=== PATIENT | male | born 1965 | race Caucasian/White ===

== ENCOUNTER 2023-11-01 18:51 | Emergency (ER) | payer BC, SELFPAY ==
[2023-11-01 18:59] VITALS: BP 114/78
--- NOTE | 2023-11-01 20:55 | ED.GENMED ---
History of Present Illness
General
Chief Complaint: Back Pain
Source: patient
Time Seen by Provider: 11/01/23 20:11
History of Present Illness
History of Present Illness:
58-year-old male presenting to the emergency department for evaluation of left-sided lower back pain that has been present for the last 5 days, gradually worsening in intensity and now radiating down into the left thigh. Patient also notes he
started to feel little bit of pain into the right lower part of his back. Patient came to the ER this evening in search for pain relief as he notes Motrin and Tylenol is not helping as well as hoping to obtain an MRI for further evaluation patient
denies any fevers or infectious symptoms, bowel or urinary incontinence, saddle anesthesias or any other focal weakness or numbness, traumatic injuries, long-term corticosteroid use. Patient does note that 12 years ago he had L3 and L4 fracture
from a traumatic injury but does not note any chronic complications from this.
Past History
Past History
ED Past Medical History: None
ED Past Surgical History: None
Social History
Tobacco: Non-smoker
Alcohol: Occasional
Drug: None
Personal:
Living: with family
Review of Systems
Review of Systems
All Other Systems: ROS reviewed and negative except as documented in HPI and ROS
Phy Exam
Physical Exam
Physical Exam:
GENERAL: Alert , in no apparent distress but does appear uncomfortable with movement and moves very gingerly
EYE: clear conjunctiva b/l
NECK: Supple
ENT: o/p clr, mmm.
CARDIAC: Regular rate and rhythm .
LUNGS: Clear breath sounds bilaterally, no acute respiratory distress, no wheezes/rales/rhonchi
ABDOMEN: Soft, without focal tenderness, no r/g, no cvat
BACK: Limited range of motion especially with forward flexion, left paralumbar tenderness, no midline bony tenderness, no rashes
NEUROLOGICAL: Alert and oriented, no focal neuro deficits. Patellar deep tendon reflexes intact and equal bilaterally, sensation grossly intact and equal to light touch bilateral lower extremities
SKIN: Warm and dry, skin intact.
MUSCULOSKELETAL: No edema, well perfused. EHL intact bilaterally
PSYCH: Normal and appropriate interaction.
Scores
Heart Failure Risk
Heart Failure Risk Score: Not Applicable
Heart Score for Chest Pain Patients
STEMI patient?: Not applicable
Withdrawal Assessment of Alcohol
Withdrawal Assessment Completed?: Not applicable
Course
Orders/Labs/Results
Orders:
Orders
11/01/23 20:55
Dexamethasone Sod Phosphate [Decadron] 10 mg IM NOW STA
Tramadol HCl [Ultram] 50 mg PO NOW STA
Vital Signs
Initial and Last Documented VS:
Initial Vital Signs
Temp Pulse Resp BP Pulse Ox
98.1 F 104 22 114/78 98
11/01/23 18:59 11/01/23 18:59 11/01/23 18:59 11/01/23 18:59 11/01/23 18:59
Last Documented Vital Signs
Temp Pulse Resp BP Pulse Ox
98.1 F 104 22 114/78 98
11/01/23 18:59 11/01/23 18:59 11/01/23 18:59 11/01/23 18:59 11/01/23 18:59
MDM/Problems Addressed
Differential Diagnosis Includes:
Lumbar strain, disc herniation, nerve impingement, spinal stenosis, no concern for infectious nor acute neurologic etiologies
MDM/Problems Addressed:
58-year-old male presenting to the emergency department for evaluation of gradually worsening left lower back pain over the last 5 days, pain now radiating down the left thigh. Patient was hoping for MRI this evening but explained that this would
be unable to be obtained. An x-ray had been ordered but patient is ultimately declining this stating this would be unlikely to help and that he would contact his family doctor for the MRI. Patient notes that he has had tramadol before for pain
relief and is requesting this. [place] PDMP was reviewed and did not show any prescriptive abnormalities. Will also trial a steroid taper. Patient aware of return precautions to the ER but otherwise stable for discharge home.
*Pulse Oximetry
Patient hypoxic: no
*Critical Care Note
Total Time (30-74mins, 75-104mins- exclusive of procedures): Not Applicable
ED Attending Note
-
Portions of this chart may have been created with voice recognition software.� Occasional wrong word or��sound alike� substitutions may have occurred due to the inherent limitations of voice recognition software.
Discharge Plan
Departure
Patient Disposition: Home (Routine Discharge)
Date of Disposition: 11/01/23
Time of Disposition: 20:55
Patient with high blood pressure during this ER visit?: No
Discharge Problem:
Dorsalgia of lumbosacral region
Instructions: Low Back Pain (DC)
Prescriptions:
New
tramadol 50 mg tablet
50 mg PO BID PRN (Reason: Pain) Qty: 10 0RF
methylprednisolone [Medrol (Charles)] 4 mg tablets,dose pack
4 mg PO DIRECTED Qty: 21 0RF
Referrals:
PRIVATE,PHYSICIAN [Family Provider] -
Interventions
Interventions:
*Risk Screen - Suicide Last Done: 11/01/23 18:59
*Neglect/Abuse Screening Last Done: 11/01/23 18:59
*Nursing Disposition Last Done: 11/01/23 21:14
ED-Musculoskeletal Assessment Last Done: 11/01/23 19:33
Discharge Date and Time
Print Language: BELARUSIAN
[2023-11-01] MEDS: ULTRAM 50 MG PO (21:07)
[2023-11-01] MEDS: DECADRON 10 MG IM (21:08)
== END 2023-11-01 21:14 | disposition home or self-care (01) ==
LOC: EMR 18:51
PROVIDERS: EMERGENCY PHYSICIAN Student in an Organized Health Care Education/Training Program
DX: M54.50 Low back pain, unspecified (principal); Z87.81 Personal history of (healed) traumatic fracture
CPT/HCPCS: 96372; 99284